=== PATIENT | male | born 1985 | race Caucasian/White ===

== ENCOUNTER 2024-01-19 16:28 | Emergency (ER) | payer MEDICAID ==
[~2024-01-19] VITALS: Ht 180.3 cm; Wt 77.3 kg
[2024-01-19 16:53] VITALS: BP 138/84; PULSE 98; RESP 18; TEMP 97.8; O2SAT 98
[2024-01-19] MEDS ORDERED: AMOX-580 PO (17:29)
[2024-01-19] MEDS: TETanus/Pertussis (Acell)/Diphther VAC/PF (Tdap-Adult) 0.5ml syringe IMVAC ONE (17:55)
== END 2024-01-19 18:02 | disposition home or self-care (01) ==
LOC: ER 16:29
DX: S51.851A Open bite of right forearm, initial encounter (principal); W54.0XXA Bitten by dog, initial encounter; Y93.89 Activity, other specified; Y92.89 Other specified places as the place of occurrence of the external cause; Y99.8 Other external cause status
CPT/HCPCS: 90471; 90715; 99283; J7030; A6258